=== PATIENT | female | born 1950 | race Caucasian/White ===

== ENCOUNTER → 2018-04-24 10:55 | Outpatient (CLI) | payer MEDICARE, OTHER, SELFPAY ==
--- NOTE | 2018-04-24 10:59 | RAD_ITS ---
STUDY: X-RAY - LEFT KNEE REASON FOR EXAM: Bilateral knee pain, no trauma. TECHNIQUE: 5 view(s) of the knee. COMPARISON: Radiographs 02/22/2014. FINDINGS: Normal visualized distal femur. Normal visualized proximal tibia and fibula. Normal proximal tibiofibular articulation. Normal medial femorotibial compartment. There are marginal osteophytes and joint space loss of the lateral femorotibial compartment. There are small marginal osteophytes and joint space narrowing of the patellofemoral articulation. The soft tissue structures are unremarkable. RAD/Knee 4 or More Views IMPRESSION: Arthrosis of the lateral femorotibial and patellofemoral compartments, similar to the prior study. Electronically Signed: Jason Sorensen MD at 11:50 EDT Tel , Service support ,
--- NOTE | 2018-04-24 10:59 | RAD_ITS ---
STUDY: X-RAY - RIGHT KNEE REASON FOR EXAM: Bilateral knee pain, no trauma. TECHNIQUE: 4 view(s) of the knee. COMPARISON: None. FINDINGS: Normal visualized distal femur. Normal visualized proximal tibia and fibula. Normal proximal tibiofibular articulation. Normal medial femorotibial compartment. There are marginal osteophytes and joint space narrowing of the lateral femorotibial compartment. There are small marginal osteophytes and joint space narrowing of the patellofemoral articulation. There is a small joint effusion. There is vascular calcification. RAD/Knee 4 or More Views IMPRESSION: Arthrosis of the lateral femorotibial and patellofemoral compartments. Small joint effusion. Electronically Signed: Jason Sorensen MD at 11:53 EDT Tel , Service support ,
== END ==
PROVIDERS: Family Provider Internal Medicine; PCP Internal Medicine; Visit Provider Orthopaedic Surgery
DX: M25.561 Pain in right knee (principal); M25.562 Pain in left knee
CPT/HCPCS: 73564; 97161

== ENCOUNTER 2018-05-15 17:30 | Outpatient (RCR) | payer MEDICARE, OTHER, SELFPAY ==
--- NOTE | 2018-04-24 16:18 | HP.PTEVAL_ITS ---
Patient's Visit Information RAUL DE JESUS is a 67 year old F referred to Physical Therapy by Tori Cortez DO with a diagnosis of B lateral joint and PF OA. Date of Evaluation: 04/24/18 Physical Therapist: Murray Grace PT, - Visit Plan Frequency: 2x /Week Duration: 4 Weeks Plan: Start with quad activation and ROM interventions to improve R knee extension. Flexibility and manual interventions for hamstrings and gastroc. Modalities prn. - Subjective Subjective: Pt is 67 y/o female referred for B lat joint and PF OA. This is a chronic issue that has worsened in the past 3 weeks with no EDWIN. She reports that her pain is located in the R lateral and posterior knee and the L lateral knee. The right knee is more painful than the left. She usually walks 3-4 miles but in the past week she has been unable to walk greater than a 1/2 mile. Denies numbness, falls, and night pain. Aggrevating factors: walking, stairs, weight bearing, sleeping with knee straight. Easing factors: medications. OCCUPATION: owns farm, [employer] business - Pain R knee Pain Intensity (Out of 10): 7 Pain Intensity Range: 3, 9 L knee Pain Intensity (Out of 10): 4 Pain Intensity Range: 3, 9 - Objective OBSERVATION: swelling evident bilat knee lateral compartment, Bilat genu valgum. PALPATION: TTP bilat lateral joint line and R ITB. GAIT: R antalgic gait with R toe out and loss of knee extension during stance phase with knee valgus. ROM: R knee ROM -10-109, L knee ROM 0-125. R ankle DF 5, L ankle DF 0. STRENGTH: R hip abd 4/5, ext 4-/5. L hip abd 4/5, R hip ext 4/5. - Goals Goal 1:: Pt will demonstrate 0 degrees of B extension to normalize gait mechanics and improve pain. Goal Time Frame: 4-6 Weeks Goal 2:: Pt will improve hip abd/ext strength to 4+/5 to improve hip stability during ambulation. Goal Time Frame: 4-6 Weeks Goal 3:: Pt will report ability to sleep through night without interruptions due to R knee pain to improve QOL. Goal Time Frame: 4-6 Weeks Goal 4:: Pt will ascend/descend 12 stairs with reciprocal pattern and 1 handrail to improve functional mobility. Goal Time Frame: 4-6 Weeks Goal 5:: Pt will report ability to ambulate for 15 minutes without break due to knee pain to allow pt to resume walking program. Goal Time Frame: 4-6 Weeks Goal 6:: Pt will be independent with HEP to sustain gains made in the clinic. Goal Time Frame: 4-6 Weeks - Rehabilitation Potential Physical Therapy Diagnosis: This patient has right knee pain greater than left with pain ,decrease ROM ,antalgic gait with knee valgus deformity impairs function and ADL'S thus benifits from skilled PT Rehabilitation Potential: Good - Anticipated Interventions Patient/Client Instruction: Educate patient on: Condition, Plan of Care For the Purpose of:: To decrease pain, To increase ROM, To improve muscle performance and motor function, To increase tolerance to activity/condition/ position, To improve ability of physical actions for home/community/work/leisure , To improve gait and locomotor functions, To decrease soft tissue restriction, To increase flexibility/ROM, To reduce risk of recurrence, To improve self management Therapeutic Exercise to Include: Strength training, Endurance training, Coordination, Body mechanics, Postural training, Flexibilty training, Gait and locomotor training, Passive ROM, Active ROM For the Purpose of:: To decrease pain, To increase ROM, To improve muscle performance and motor function, To increase tolerance to activity/condition/ position, To improve ability of physical actions for home/community/work/leisure , To improve gait and locomotor functions, To improve health of tissue, To decrease soft tissue restriction, To increase flexibility/ROM, To reduce risk of recurrence, To improve self management Manual Therapy Techniques to Include: Mobilization, Passive ROM, Soft tissue mobilization For the Purpose of:: To decrease pain, To increase ROM, To improve muscle performance and motor function, To increase tolerance to activity/condition/ position, To improve ability of physical actions for home/community/work/leisure , To improve gait and locomotor functions, To improve health of tissue, To decrease soft tissue restriction, To increase flexibility/ROM IF ES: Yes Cryotherapy (ice pack, ice massage): Yes Thermo therapy (hot pack): Yes Ultrasound (thermal/non thermal): Yes For the Purpose of:: To decrease pain, To increase ROM, To increase tolerance to activity/condition/position, To improve performance and independence with ADL 's, To improve ability of physical actions for home/community/work/leisure, To decrease soft tissue restriction, To increase flexibility/ROM Thank you for the opportunity to evaluate your patient. For Medicare and Medicare HMO plans, please review the plan of care and approve it. It will need to be FAXED BACK to us at [phone] for Medicare purposes. Please let me know if there are questions or concerns regarding this plan of care. Physician Signature: Date:
--- NOTE | 2018-07-15 07:28 | HP.PTDCNRP_ITS ---
HP - Discharge Summary (1) - Patient Information RAUL DE JESUS was seen in my office for initial evaluation on 04/24/18. The following Plan of Care was established for this patient: Initial Frequency: 2x /Week Initial Duration: 4 Weeks - Anticipated Interventions Patient/Client Instruction: Educate patient on: Condition, Plan of Care For the Purpose of:: To decrease pain, To increase ROM, To improve muscle performance and motor function, To increase tolerance to activity/condition/position, To improve ability of physical actions for home/community/work/leisure, To improve gait and locomotor functions, To decre ase soft tissue restriction, To increase flexibility/ROM, To reduce risk of recurrence, To improve self management Therapeutic Exercise to Include: Strength training, Endurance training, Coordination, Body mechanics, Postural training, Flexibilty training, Gait and locomotor training, Passive ROM, Active ROM For the Purpose of:: To decrease pain, To increase ROM, To improve muscle performance and motor function, To increase tolerance to activity/condition/position, To improve ability of physical actions for home/community/work/leisure, To improve gait and locomotor functions, To improve health of tissue, To decrease soft tissue restriction, To increase flexibility/ROM, To reduce risk of recurrence, To improve self management Manual Therapy Techniques to Include: Mobilization, Passive ROM, Soft tissue mobilization For the Purpose of:: To decrease pain, To increase ROM, To improve muscle p erformance and motor function, To increase tolerance to activity/condition/position, To improve ability of physical actions for home/community/work/leisure, To improve gait and locomotor functions, To improve health of tissue, To decrease soft tissue restriction, To increase flexibility/ROM IF ES: Yes Cryotherapy (ice pack, ice massage): Yes Thermo therapy (hot pack): Yes Ultrasound (thermal/non thermal): Yes For the Purpose of:: To decrease pain, To increase ROM, To increase tolerance to activity/condition/position, To improve performance and independence with ADL's, To improve ability of physical actions for home/community/work/leisure, To decrease soft tissue restriction, To increase flexibility/ROM This patient was last seen in our office 05/15/18. Pertinent comments regarding their Physical therapy will appear below: Patient seen for PT for bilateral knee OA ,patella femoral with PT focusing on ROM,strength for gait and function. Patient is d/c to HEP. At this point I will be discontinuing this patient from physical therapy. I would be happy to see this patient again in the future if found appropriate by the physician. Thank you! Murray Grace, PT,
== END 2018-05-15 19:00 | disposition home or self-care (01) ==
LOC: PT 17:30
PROVIDERS: Family Provider Internal Medicine; PCP Internal Medicine; Visit Provider Orthopaedic Surgery
DX: M22.2X1 Patellofemoral disorders, right knee (principal); M22.2X2 Patellofemoral disorders, left knee
CPT/HCPCS: 97110; 97140; 97161

== ENCOUNTER → 2018-06-17 12:41 | Outpatient (CLI) | payer MEDICARE, OTHER, SELFPAY | PROVIDERS: Family Provider Internal Medicine; PCP Internal Medicine; Visit Provider Internal Medicine | DX: Z12.31 Encounter for screening mammogram for malignant neoplasm of breast (principal) | CPT/HCPCS: 77063; 77067 ==

== ENCOUNTER 2020-05-26 18:31 | Emergency (ER) | payer MEDICARE, OTHER, SELFPAY ==
[2020-05-26 18:31] VITALS: BP 135/104; PULSE 92; RESP 16; TEMP 36.5; O2SAT 99; BMI 31.1
--- NOTE | 2020-05-26 18:45 | RAD_ITS ---
STUDY: X-RAY CHEST REASON FOR EXAM: Female, 69 years old. chest pain TECHNIQUE: Single AP portable view of the chest. COMPARISON: None. FINDINGS: There are monitoring devices. The lungs are clear and expanded. There is no demonstrated pleural abnormality. Normal size heart. Normal mediastinum and ninoska. Normal visualized pulmonary arteries. There is atherosclerotic tortuosity of the aortic arch and descending thoracic aorta. There are diffuse degenerative changes of the visualized thoracic spine. There is degenerative osteoarthritis of the bilateral shoulders. There is no demonstrated abnormality of the visualized soft tissue structures of the upper abdomen. RAD/Chest 1 View (Portable) IMPRESSION: Degenerative changes, as described above. No demonstrated acute cardiopulmonary process. Electronically Signed: Michael Everett MD at 19:50 EDT , Service support ,
--- NOTE | 2020-05-26 18:45 | EKG12_ITS ---
Test Reason : CP Blood Pressure : / mmHG Vent. Rate : 086 BPM Atrial Rate : 086 BPM P-R Int : 154 ms QRS Dur : 062 ms QT Int : 348 ms P-R-T Axes : 048 -07 033 degrees QTc Int : 416 ms Normal sinus rhythm Inferior infarct , age undetermined Abnormal ECG Confirmed by MARISOL PURDY, AURELIO ([id number]), digital editor ARCHANA JAEEGR ([id number]) on 05/30/2020 9:37:27 AM Referred By: BB Confirmed By:ELIE DAMON MD
--- NOTE | 2020-05-26 18:51 | ED.DCSUM_ITS ---
History of Present Illness Chief Complaint: Chest Pain Informant: Patient Onset: Today - around 11 am, 7-8 hrs prior to eval Activity at onset: Rest Timing: Continuous Quality: Indigestion, Pressure Location: Left Chest - w/ radiation of discomfort into left shoulder and upper arm; radiation is less/better now. Current Severity: Mild Maximum Severity: Mild Worsened By: Nothing. Not Worsened By: Exertion, Movement of Arm, Movement of Torso, Palpation, Breathing, Coughing Relieved By: Nothing Associated Symptoms: - - burping a lot since onset. Negative for: Nausea, Vomiting, Diaphoresis, Dyspnea, Cough, Fever, Lightheadedness, Palpitations Narrative: Patient states she has no past medical history but has a strong family history of heart disease in her family, so she became concerned when she got this chest discomfort. She states she has had a stress test on her heart but it was long ago, it was negative. She took an aspirin today, and that seemed to help her left upper extremity discomfort but her left chest is still bothering her about the same. It is nonpleuritic. She denies any other associated symptoms except a lot of burping. She does not have a known history of reflux and takes no prescriptions on a daily basis. No recent travel, hospitalization, surgery, leg pain or swelling, history of DVT or PE. Prior Similar Symptoms: Yes - unk etiology but BP has been up with it Past Medical History - Allergies and Home Meds Allergies/Adverse Reactions: Allergies penicillin V Allergy (Verified 05/26/20 18:34) Unknown Primary Care Physician: Saida Rodarte DO [STAFF PHYSICIAN] - Past Medical History: None Lives: With Family Smoking Status: Never smoker Review of Systems General: Denies: Chills, Fever, Sweats Eyes: Denies: Visual changes - bilaterally, Diplopia ENT: Denies: Rhinorrhea, Sore throat Cardiovascular: Reports: Chest pain. Denies: Palpitations Respiratory: Denies: Dyspnea, Cough, Dyspnea on exertion Gastrointestinal: Reports: - - Burping. Denies: Abdominal pain, Nausea, Vomiting, Diarrhea, Melena, Hematochezia Genitourinary: Denies: Dysuria, Hematuria, Frequency Musculoskeletal: Reports: Extremity Pain. Denies: Neck pain, Back pain, Swelling Skin: Denies: Rash, Wounds Neurological: Denies: Headache, Weakness, Numbness Physical Exam Vital Signs/Narrative: Vital Signs Temp Pulse Resp BP Pulse Ox 05/26/20 18:31 97.7 F L 92 16 135/104 H 99 Inital Vital Signs reviewed: Yes General: Well nourished, Well developed, No Acute Distress Head: Normocephalic, Atraumatic Eyes: Perrl, EOMI ENT: Moist mucous membranes, No rhinorrhea Neck: Supple, Nontender Cardiovascular: Regular rate, Regular rhythm, No murmurs. Negative for: Tachycardia Respiratory: No distress, CTA bilaterally, Chest nontender Abdomen: Soft, Nontender, Nondistended, Normal bowel sounds Back: Nontender, Normal Inspection Extremities: Nontender, No edema. Negative for: Calf Tenderness Skin: Normal color, No rash, No Trauma Neurological: Alert, Oriented x3, Cranial nerves II-XII grossly intact, Normal Strength, Normal Sensation, Normal Gait Psychological: Normal affect, Normal Mood Diagnostic/Tx/Re-eval Chest X-Ray - ED: 1 View, Read by ED Physician, Normal, Heart, Lungs, Mediastinum, Bony Structures, No Acute Disease Laboratory Tests 05/26/20 05/26/20 Range/Units 18:55 18:55 WBC 6.7 (4.4-11.0) K/mm3 RBC 4.61 (4.2-5.4) M/mm3 Hgb 13.1 (12.0-15.0) g/dL Hct 41.4 (37-47) % MCV 89.8 (81-99) fL MCH 28.4 (27.0-32.0) pg MCHC 31.6 L (32-36) g/dL RDW Std Deviation 44.4 H (35.1-43.9) fl RDW Coeff of Dylan 13.5 (11.6-14.6) % Plt Count 265 (150-450) K/mm3 MPV 9.7 (6.2-12.0) fl Immature Gran % (Auto) 0.100 (0.0-0.9) % Neut % (Auto) 59.0 (47-70) % Lymph % (Auto) 27.2 (19-41) % [place] % (Auto) 8.8 (0-10) % Eos % (Auto) 4.5 (0-5) % Baso % (Auto) 0.4 (0-1) % Absolute Neuts (auto) 4.0 (2.0-7.7) X10^3/uL Absolute Lymphs (auto) 1.83 (0.83-4.51) X10^3/uL Nucleated RBC % 0 (0-5) % Sodium 140 (136-145) mmol/L Potassium 5.0 (3.5-5.1) mmol/L Chloride 108 H (98-107) mmol/L Carbon Dioxide 28.0 (21.0-32.0) mmol/L Anion Gap 4 L (5-15) BUN 12 (7-18) mg/dL Creatinine 0.55 (0.55-1.02) mg/dL Estim Creat Clear Calc 53.09 ml/min Est GFR (MDRD) Af Amer 142 (>60) mL/min Est GFR (MDRD) Non-Af 117 (>60) mL/min BUN/Creatinine Ratio 21.8 H (10-20) RATIO Glucose 97 (74-106) mg/dL Calcium 9.4 (8.5-10.1) mg/dL Troponin I < 0.015 (<0.045) ng/mL - Rhythm Strip Rhythm Strip: Sinus Rhythm Rate: 86 Ectopy: None - EKG Initial EKG Interpretation: Sinus Rhythm, No Acute Injury Pattern, - - leftward axis, WNL, otherwise nml EKG Treatment: GI Cocktail - declined the lidocaine; maybe mildly improved; not burping anymore ANNA Risk: Age >/= 65 Score: 1 - Medical Decision Making Patient is maybe mildly improved after GI cocktail. Her enzymes are negative, she has a low ANNA risk score, and with her age and one risk factor, family history, her heart score is 3. However, she does not necessarily need a delta troponin because she presents over 6 hours after the onset of discomfort and has been constant, with a negative enzymes. We discussed the limited ability to discern whether she has coronary disease or not, I she is less likely to be having acute coronary syndrome/unstable angina, and I discussed being admitted for a stress test and repeat enzymes to be more sure. She refuses and will not do this. She was to follow-up as an outpatient. Advised to take aspirin daily in the meantime, and we discussed reasons to return. I also offered her other treatments prior to discharge and she declines those as well and states she does feel better enough to leave. ED Disposition - Plan for ED Patient: Disposition: Home or Assisted Living Diagnosis: Chest pain, unspecified Instructions: ED Chest Pain Atypical Unkn Cause Referrals: Saida Rodarte DO [STAFF PHYSICIAN] - As soon as possible Additional Instructions: Take 81 mg aspirin daily until you are seen by your doctor
[2020-05-26 19:05] LABS: Absolute Lymphocyte Count 1.83 X10^3/uL (0.83-4.51); Basophil# 0.03 X10^3/uL; Basophil% 0.4 % (0-1); Eosinophils% 4.5 % (0-5); Hematocrit 41.4 % (37-47); Hemoglobin 13.1 g/dL (12.0-15.0); Lymphocyte # 1.83 X10^3/ul (4.0); Lymphocyte % 27.2 % (19-41); Mean Corp Hgb Conc 31.6 g/dL (32-36); Mean Corpuscular Hgb 28.4 pg (27.0-32.0); Mean Corpuscular Volume 89.8 fL (81-99); Mean Platelet Vol. 9.7 fl (6.2-12.0); Monocyte# 0.59 X10^3/uL; Monocyte% 8.8 % (0-10); NRBC Flagged by Analyzer 0 % (0-5); Neutrophil # 3.97 X10^3/uL (2.7-7.7); Platelet Count 265 K/mm3 (150-450); RBC Distribution Width CV 13.5 % (11.6-14.6); RBC Distribution Width SD 44.4 fl (35.1-43.9); Red Blood Count 4.61 M/mm3 (4.2-5.4); White Blood Count 6.7 K/mm3 (4.4-11.0)
[2020-05-26 19:17] VITALS: PULSE 68; RESP 17; O2SAT 99
[2020-05-26] MEDS: 0.9% Normal Saline 1,000 ML 150 ML IV (19:21)
[2020-05-26] MEDS: Mag Hydrox/Al Hydrox/Simeth 30 ML UDC PO (19:22)
[2020-05-26 19:47] LABS: BUN 12 mg/dL (7-18); Glucose 97 mg/dL (74-106)
[2020-05-26 19:48] LABS: Anion Gap 4 (5-15); BUN/Creat Ratio 21.8 RATIO (10-20); Calcium,Total 9.4 mg/dL (8.5-10.1); Chloride 108 mmol/L (98-107); Creatinine, Serum 0.55 mg/dL (0.55-1.02); EST Glomerular Filtration Rate 117 mL/min (>60); Est Glom Filt Rate - Afr Amer 142 mL/min (>60); Estimated Creatinine Clearance 53.09 ml/min; Sodium Level 140 mmol/L (136-145)
[2020-05-26 20:01] VITALS: BP 152/94; PULSE 83; RESP 16; O2SAT 98
== END 2020-05-26 20:03 | disposition home or self-care (01) ==
PROVIDERS: Emergency Provider Emergency Medicine
DX: R07.9 Chest pain, unspecified (principal); Z82.49 Family history of ischemic heart disease and other diseases of the circulatory system; Z88.0 Allergy status to penicillin
CPT/HCPCS: 71045; 80048; 84484; 85025; 93005; 96360; 96361; 99285; J7030; A4216

== ENCOUNTER → 2020-07-21 11:03 | Outpatient (CLI) | payer MEDICARE, OTHER, SELFPAY ==
--- NOTE | 2020-07-21 11:12 | ECHOCS_ITS ---
Reason For Study: CHEST PAIN Procedure This was a 2D Doppler, Color Flow transthoracic echocardiogram. Exam performed in department. Left Ventricle Normal LV size. The estimated ejection fraction is 65 %. No evidence for diastolic dysfunction. No regional wall motion abnormalities noted. Right Ventricle Normal right ventricle. Normal systolic function. Atria Normal left atrium. Normal right atrium. No doppler evidence for ASD. Mitral Valve There is no mitral valve stenosis. No mitral valve insufficiency. Tricuspid Valve There is no tricuspid stenosis. Unable to estimate RV systolic pressure due to inadequate jet, pulmonary artery pressure probably normal. Aortic Valve Trisinus/trileaflet aortic valve. There is no aortic stenosis. No aortic valve insufficiency. Pulmonic Valve There is no pulmonic valvular stenosis. No pulmonic valve insufficiency. Great Vessels Normal aortic root. Pericardium/Pleural No pericardial effusion. Medication 22 gauge I.V. with prn adaptor inserted into left arm. Diluted definity 4ml given slow IV push to enhance endocardial definition. MMode/2D Measurements & Calculations LVIDd: 4.2 cm IVSd: 1.2 cm Ao root diam: 3.1 cm LVIDs: 2.9 cm LVPWd: 1.1 cm RVDd: 3.1 cm FS: 32.9 % LAV(MOD-bp): 39.9 ml LVAd ap4: 27.4 cm2 SV(MOD-sp4): 46.3 ml LAV(MOD-bp) Indexed: 20.2 ml/m2 EDV(MOD-sp4): 76.3 ml LAV(MOD-sp2): 46.2 ml EDV(sp4-el): 81.2 ml LAV(MOD-sp4): 36.6 ml LVAs ap4: 15.4 cm2 ESV(MOD-sp4): 30.0 ml ESV(sp4-el): 30.5 ml EF(MOD-sp4): 60.7 % EF(sp4-el): 62.5 % SV(sp4-el): 50.7 ml LA A4 area: 14.3 cm2 LA dimension(2D): 3.0 cm RA A4 area: 11.6 cm2 Time Measurements MV dec time: 0.20 sec Doppler Measurements & Calculations MV E max zeferino: 62.4 cm/sec Lat Peak E' Zeferino: 8.4 cm/sec Med Peak E' Zeferino: 6.8 cm/sec MV A max zeferino: 105.3 cm/sec E/E' lat: 7.4 E/E' med: 9.2 MV E/A: 0.59 Ao V2 max: 123.9 cm/sec LV V1 max: 109.6 cm/sec PA V2 max: 94.8 cm/sec Ao max P.1 mmHg LV V1 max P.8 mmHg Interpretation Summary The estimated ejection fraction is 65 %. No evidence for diastolic dysfunction. The study was technically difficult. Contrast injection was performed. Ordering Physician: Saida Rodarte Referring Physician: Saida Rodarte Performed By: Ebony Cowart RDCS
--- NOTE | 2020-07-21 15:16 | STRESSREP ---
Stress Test Report Date: 07/21/2020 Procedure: Exercise tolerance test Indications: Chest pain Consent: Per the patient Procedure: The patient exercised on a Gómez protocol for 4 minutes and 9 seconds achieving a peak heart rate of 153 bpm (100% predicted maximal heart rate) with a peak blood pressure 184/90 mmHg and a peak MET capacity of approximately 5.9 MET's. The baseline ECG demonstrated normal sinus rhythm. The peak exercise ECG demonstrated no significant ischemic changes. [There were no cardiac dysrhythmias pretest, during exercise, or recovery]. The functional capacity was considered decreased for age. Patient had no chest pain with exertion. The examination was discontinued secondary to shortness of breath. Impression: 1. Technically adequate (percent predicted maximal heart rate greater than 85%) exercise tolerance test 2. Stress test is negative for exercise-induced chest pain. 3. Stress test test is negative for exercise-induced EKG changes of ischemia. 4. Functional capacity is decreased for age This note was generated with IPextremeation software. It may contain incorrect words, spelling, and punctuation that were not noted in checking the note before signing.
== END ==
PROVIDERS: PCP Internal Medicine; Referring Provider Internal Medicine; Visit Provider Internal Medicine
DX: R07.9 Chest pain, unspecified (principal)
CPT/HCPCS: 93017; 93306; Q9957; A4216; C8929